=== PATIENT | female | born 1975 | race Caucasian/White ===

== ENCOUNTER 2021-01-20 06:09 | Emergency (ER) | payer OTHER, SELFPAY ==
--- NOTE | ~2021-01-20 | CT_ITS ---
EXAMINATION: CT ABDOMEN AND PELVIS WITH CONTRAST CLINICAL INFORMATION: Upper abdominal pain. COMPARISON: None TECHNIQUE: Multidetector volumetric images were obtained from the superior aspect of the liver through the pubic symphysis following administration 85 mL of Omnipaque 350 intravenous contrast. Sagittal and coronal reformatted images were obtained on the technologist's workstation. Oral contrast: No This CT examination was performed using dose optimization techniques as appropriate, variously including the following: *Automated exposure control *Adjustment of mA and/or kV according to patient size (this includes techniques or standardized protocols for targeted exams where dose is matched to indication/reason for exam; i.e. extremities or head) *Use of iterative reconstruction technique DLP: 593 mGy-cm FINDINGS: LUNG BASES: The heart size is normal. There is a 3 mm subpleural nodule right lower lobe axial image 9/6. Minimal atelectatic changes seen in left lung base. LIVER, GALLBLADDER, AND BILIARY TREE: The liver is normal in size, shape, and attenuation. No focal hepatic lesion or biliary ductal dilatation is present. The gallbladder is unremarkable with no evidence of radiopaque gallstones, gallbladder wall thickening, or obvious pericholecystic inflammatory changes. PANCREAS: Unremarkable. SPLEEN: Unremarkable. ADRENAL GLANDS: Unremarkable. KIDNEYS AND URETERS: The kidneys are normal in size, shape, and attenuation. No hydronephrosis, hydroureter, or calculi seen. No perinephric stranding. There are multiple 2 mm nonenhancing hypodense lesions in both kidneys suggestive of small cysts. No enhancing lesions seen. BLADDER: Unremarkable. GASTROINTESTINAL TRACT: There is scattered stool and gas seen throughout the colon without any significant distention. The small bowel loops are normal caliber. Appendix is normal caliber. ABDOMINAL WALL: There are small umbilical hernia containing fat. LYMPH NODES: Normal. VASCULAR: Unremarkable. PELVIC VISCERA: The uterus is anteverted and appears unremarkable. There is an IUD well located within the endometrial canal. OSSEOUS STRUCTURES: No lytic or sclerotic process seen. CT/CT abdomen pelvis w con IMPRESSION: No acute intra-abdominal process seen. Mild constipation.
[2021-01-20 06:12] VITALS: BP 149/100; PULSE 77; RESP 18; TEMP 36.8; O2SAT 99; BMI 29.2
--- NOTE | 2021-01-20 06:41 | ED.ABDPAIN ---
HPI - Abdominal Pain General Chief Complaint: Abdominal Pain Stated Complaint: abdominal and back pain Time Seen by Provider: 01/20/21 06:41 Source: patient Mode of arrival: ambulatory Limitations: no limitations History of Present Illness HPI narrative: 45 yo female with upper and mid abdominal pain no other GI or symptoms radiates from back to abdomen and down to R hip no injuries, no prior events MD elicited complaint: abdominal pain Pertinent past history: none Onset (ago): day(s) (2) Pain Consistency: constant Location: epigastric Severity: moderate Quality: aching and dull Radiation: back Migration to: no migration Exacerbating factors: movement Relieving factors: nothing Associated symptoms: denies other symptoms Related Data Previous Rx's Medication Instructions Recorded diazepam [Valium] 5 mg PO TID PRN #10 tab 01/20/21 famotidine [Pepcid] 20 mg PO DAILY PRN #30 tab 01/20/21 lidocaine 1 patch TOPICAL DAILY PRN #10 ea 01/20/21 Allergies Allergy/AdvReac Type Severity Reaction Status Date / Time sulfamethoxazole Allergy Mild RASH Unverified 05/29/20 15:13 [From ] trimethoprim [From ] Allergy Mild RASH Unverified 05/29/20 15:13 Septra Allergy Unknown Uncoded 04/22/14 00:00 Review of Systems Review of Systems Constitutional : No Weight loss, No Fever, No Chills ENT/Mouth : No sore throat, No Rhinorrhea Eyes: No Swelling, No Redness Cardiovascular : No Chest Pain, No SOB, NoEdema Respiratory : No Cough, No Sputum, No Wheezing Gastrointestinal : no Nausea,no Vomiting, no Diarrhea, positive abdominal Pain, No Hematochezia, No Melena Genitourinary : No Dysuria, No Urinary Frequency, No Hematuria, No Urgency Musculoskeletal : No joint pain, No Myalgias, No Joint Swelling, pos back pain Skin : No Skin Lesions, No rash Neuro : No Weakness, No Numbness, No Dizziness, No Headache Psych : No Anxiety/Panic, No Depression Heme/Lymph: No Bruising, No Lymphadenopathy Endocrine : No Polyuria, No Polydipsia All other systems reviewed and are negative. Physical Exam Vital Signs: Vital Signs: Last Vital Signs Temp 98.4 F 01/20/21 08:50 Pulse 62 01/20/21 08:50 Resp 17 01/20/21 08:50 BP 120/84 01/20/21 08:50 Pulse Ox 100 01/20/21 08:50 Body Mass Index 29.2 Appearance: Alert. Oriented X3. No acute distress. Eyes: Pupils equal, round and reactive to light. ENT: Pharynx normal. Neck: Normal inspection. Neck supple. CVS: Normal heart rate and rhythm. Pulses normal. Respiratory: No respiratory distress. Breath sounds normal. Abdomen: Soft and moderate ttp in epigastric area Back: ttp along lower R lumbar area Skin: Skin warm and dry. Normal skin color. Normal skin turgor. Extremities: No lower extremity edema. No calf ttp Neuro: Oriented X 3. No motor deficit. No sensory deficit. Course Course Course Narrative: no acute findings, feels better, stable for DC at this time MDM - Abdominal Pain MDM Narrative Medical decision making narrative: 45 yo female healthy with 2 days of epigastric pain no n/v/d no symptoms pain radiates to the back - at this time her abdomen is tender, she has no b/b incontinence, no saddle anesthesia, no AC therapy, will obtain labs, UA, treat pain with IV morphine/toradol, CT scan for pancreatitis dispo per results and findings. Lab Data Result diagrams: 01/20/21 07:22 01/20/21 07:22 Labs: Lab Results 01/20/21 01/20/21 01/20/21 Range/Units 07:22 07:22 07:22 WBC 12.4 H (4.8-10.8) X10*3/uL RBC 4.41 (4.20-5.50) X10*6/uL Hgb 14.2 (12.0-16.0) g/dl Hct 42.7 (37-47) % MCV 96.8 (80-98) fL MCH 32.2 (27.0-33.0) pg MCHC 33.3 (31.0-35.0) g/dl RDW 11.9 (11.0-16.0) % Plt Count 294 (160-400) X10*3/uL MPV 9.9 (9.4-12.3) fL Immature Gran % (Auto) 0.3 (0.0-0.4) % Neut % (Auto) 58.7 (45-73) % Lymph % (Auto) 31.2 (20-40) % Treasure % (Auto) 6.3 (2-11) % Eos % (Auto) 2.6 (0-4) % Baso % (Auto) 0.9 (0-2) % Lymph # (Auto) 3.9 (1.2-4.9) X10*3/uL Treasure # (Auto) 0.8 (0.1-1.2) X10*3/uL Eos # (Auto) 0.3 (0.0-0.4) X10*3/uL Baso # (Auto) 0.1 (0.0-0.2) X10*3/uL Abs Immat Gran (auto) 0.04 H (0.00-0.03) X10*3/uL Absolute Neuts (auto) 7.3 (2.0-8.3) X10*3/uL Absolute Nucleated RBC 0.000 (0.0-0.012) X10*3/uL Nucleated RBC % (auto) 0.0 (0.0-0.2) /100WBC Hold Blue Top SEE NOTE Sodium 138 (135-145) mmol/L Potassium 4.2 (3.3-5.1) mmol/L Chloride 109 H (96-108) mmol/L Carbon Dioxide 22 (22-29) mmol/L Anion Gap 11 L (12-20) BUN 11 (9-16) mg/dL Creatinine 0.73 (0.5-1.4) mg/dL Estim Creat Clear Calc 96.7 Estimated GFR > 60 Random Glucose 94 (60-115) mg/dL Calcium 8.8 (8.4-10.2) mg/dL Magnesium (1.6-2.6) mg/dL Total Bilirubin (0.0-1.0) mg/dL Direct Bilirubin (0.0-0.5) mg/dL AST (5-31) U/L ALT (0-31) U/L Alkaline Phosphatase (39-117) U/L Total Protein (6.5-8.0) g/dL Albumin (3.5-5.0) g/dL Lipase (8-78) U/L Urine Color Urine Appearance Urine pH (5.0-8.0) Ur Specific [place] (1.005-1.025) Urine Protein (NEG-TRACE) MG/DL Urine Glucose (UA) (NEG) MG/DL Urine Ketones (NEG) MG/DL Urine Blood (NEG) Urine Nitrite (NEG) Ur Leukocyte Esterase (NEG) 01/20/21 01/20/21 Range/Units 07:22 09:12 WBC (4.8-10.8) X10*3/uL RBC (4.20-5.50) X10*6/uL Hgb (12.0-16.0) g/dl Hct (37-47) % MCV (80-98) fL MCH (27.0-33.0) pg MCHC (31.0-35.0) g/dl RDW (11.0-16.0) % Plt Count (160-400) X10*3/uL MPV (9.4-12.3) fL Immature Gran % (Auto) (0.0-0.4) % Neut % (Auto) (45-73) % Lymph % (Auto) (20-40) % Treasure % (Auto) (2-11) % Eos % (Auto) (0-4) % Baso % (Auto) (0-2) % Lymph # (Auto) (1.2-4.9) X10*3/uL Treasure # (Auto) (0.1-1.2) X10*3/uL Eos # (Auto) (0.0-0.4) X10*3/uL Baso # (Auto) (0.0-0.2) X10*3/uL Abs Immat Gran (auto) (0.00-0.03) X10*3/uL Absolute Neuts (auto) (2.0-8.3) X10*3/uL Absolute Nucleated RBC (0.0-0.012) X10*3/uL Nucleated RBC % (auto) (0.0-0.2) /100WBC Hold Blue Top Sodium (135-145) mmol/L Potassium (3.3-5.1) mmol/L Chloride (96-108) mmol/L Carbon Dioxide (22-29) mmol/L Anion Gap (12-20) BUN (9-16) mg/dL Creatinine (0.5-1.4) mg/dL Estim Creat Clear Calc Estimated GFR Random Glucose (60-115) mg/dL Calcium (8.4-10.2) mg/dL Magnesium 2.0 (1.6-2.6) mg/dL Total Bilirubin 0.3 (0.0-1.0) mg/dL Direct Bilirubin 0.2 (0.0-0.5) mg/dL AST 11 (5-31) U/L ALT 13 (0-31) U/L Alkaline Phosphatase 49 (39-117) U/L Total Protein 6.9 (6.5-8.0) g/dL Albumin 4.1 (3.5-5.0) g/dL Lipase 30 (8-78) U/L Urine Color STRAW Urine Appearance CLEAR Urine pH 5.5 (5.0-8.0) Ur Specific [place] <= 1.005 (1.005-1.025) Urine Protein NEG (NEG-TRACE) MG/DL Urine Glucose (UA) NEG (NEG) MG/DL Urine Ketones NEG (NEG) MG/DL Urine Blood NEG (NEG) Urine Nitrite NEG (NEG) Ur Leukocyte Esterase NEG (NEG) Discharge Plan Discharge Clinical Impression: Abdominal pain Qualifiers: Abdominal location: epigastric Qualified Code(s): R10.13 - Epigastric pain Back pain Qualifiers: Back pain location: low back pain Chronicity: acute Back pain laterality: bilateral Sciatica presence: without sciatica Qualified Code(s): M54.5 - Low back pain Patient Disposition: Home, Self-Care Instructions: Abdominal Pain (ED), Back Pain (ED) Additional Instructions: return to ED for any worsening symptoms or concerns Prescriptions: New lidocaine 4 % adhesive patch,medicated 1 patch topical DAILY PRN (Reason: pain) Qty: 10 RF: 0 famotidine [Pepcid] 20 mg tablet 20 mg PO DAILY PRN (Reason: abdominal discomfort) Qty: 30 RF: 0 diazepam [Valium] 5 mg tablet 5 mg PO TID PRN (Reason: muscle spasm) Qty: 10 RF: 0 Referrals: Physician,Unknown [Primary Care Provider] - 2 days (PCP if not better) Interventions: ED Discharge Assessment Last Done: 01/20/21 09:57 Discharge Date/Time: 01/20/21 09:58 [facility] Past Medical History Attestation statement: The following information was validated with the patient. Medical History No active medical problems Social History Social History (Updated 01/20/21 @ 06:45 by Mable Garcia DO) Smoking Status: Current every day smoker Use of substances other than those prescribed or required for medical reasons: No Advance Directives: No Advance Directives Information Provided: No Patient : No
[2021-01-20 07:27] LABS: MANUAL DIFF FLAG NO
[2021-01-20] MEDS: 0.9 % Sodium Chloride 1,000 ML 999 ML IVCONT (07:28)
[2021-01-20] MEDS: ondansetron HCL 4 MG/2 ML VIAL IVPUSH (07:28)
[2021-01-20 07:29] LABS: Basophils Absolute Auto 0.1 X10*3/uL (0.0-0.2); Basophils Percent Auto 0.9 % (0-2); Eosinophils Absolute Auto 0.3 X10*3/uL (0.0-0.4); Eosinophils Percent Auto 2.6 % (0-4); Hematocrit 42.7 % (37-47); Hemoglobin 14.2 g/dl (12.0-16.0); Imm Gran Abs Auto 0.04 X10*3/uL (0.00-0.03); Imm Gran Pct Auto 0.3 % (0.0-0.4); Lymphocytes Absolute Auto 3.9 X10*3/uL (1.2-4.9); Lymphocytes Percent Auto 31.2 % (20-40); Mean Corpuscular HGB Conc 33.3 g/dl (31.0-35.0); Mean Corpuscular Hemoglobin 32.2 pg (27.0-33.0); Mean Corpuscular Volume 96.8 fL (80-98); Mean Platelet Volume 9.9 fL (9.4-12.3); Monocytes Absolute Auto 0.8 X10*3/uL (0.1-1.2); Monocytes Percent Auto 6.3 % (2-11); Neutrophils Absolute Auto 7.3 X10*3/uL (2.0-8.3); Neutrophils Percent Auto 58.7 % (45-73); Platelet Count 294 X10*3/uL (160-400); Red Blood Count 4.41 X10*6/uL (4.20-5.50); Red Cell Distribution Width 11.9 % (11.0-16.0); White Blood Count 12.4 X10*3/uL (4.8-10.8)
[2021-01-20] MEDS: Ketorolac Tromethamine 30 MG/ML VIAL IVPUSH (07:29)
[2021-01-20 07:30] VITALS: RESP 16
[2021-01-20] MEDS: Morphine Sulfate 4 MG/ML CARTRIDGE IVPUSH (07:30)
[2021-01-20 07:32] VITALS: BP 162/89; PULSE 68; RESP 16; O2SAT 100
[2021-01-20 07:49] LABS: Anion Gap 11 (12-20); Blood Urea Nitrogen 11 mg/dL (9-16); Calcium 8.8 mg/dL (8.4-10.2); Carbon Dioxide 22 mmol/L (22-29); Chloride 109 mmol/L (96-108); Creatinine Clr Calc Pharmacy 96.7; Estimated Glomerular Filt Rate > 60; Glucose Random 94 mg/dL (60-115); Potassium 4.2 mmol/L (3.3-5.1); Sodium 138 mmol/L (135-145)
[2021-01-20 07:52] LABS: Alanine Aminotransferase 13 U/L (0-31); Albumin Level 4.1 g/dL (3.5-5.0); Alkaline Phosphatase 49 U/L (39-117); Aspartate Amino Transferase 11 U/L (5-31); Bilirubin Direct 0.2 mg/dL (0.0-0.5); Bilirubin Total 0.3 mg/dL (0.0-1.0); Lipase 30 U/L (8-78); Total Protein 6.9 g/dL (6.5-8.0)
[2021-01-20 07:56] VITALS: RESP 16
--- NOTE | 2021-01-20 07:56 | PC.NURSE ---
pt off to the ct scan via stetcher.
[2021-01-20] MEDS: iohexoL 350 MG/ML 100 ML INFUS..BTL 85 ML IV (08:13)
--- NOTE | 2021-01-20 08:45 | PC.NURSE ---
correction - pt has pain to rlq abd pain
[2021-01-20 08:50] VITALS: BP 120/84; PULSE 62; RESP 17; TEMP 36.9; O2SAT 100
[2021-01-20 09:38] LABS: Glucose Urine UA NEG (NEG); Leukocyte Esterase Urine NEG (NEG); Nitrite Urine NEG (NEG); PH 5.5 (5.0-8.0); Specific Gravity - Urine <= 1.005 (1.005-1.025); Urine Blood NEG (NEG); Urine Ketones NEG (NEG); Urine Protein NEG (NEG-TRACE)
[2021-01-20 09:40] LABS: Appearance Urine CLEAR; Color Urine STRAW
== END 2021-01-20 09:58 | disposition home or self-care (01) ==
PROVIDERS: Emergency Provider Emergency Medicine
DX: R10.13 Epigastric pain (principal); M54.5 Low back pain; F17.200 Nicotine dependence, unspecified, uncomplicated
CPT/HCPCS: 36415; 74177; 80048; 80076; 81003; 83690; 83735; 85025; 87086; 96360; 96361; 96374; 96375; 99284; 99285; J1885; J2270; J2405; Q9967

== ENCOUNTER 2023-06-08 09:41 | Outpatient (AMB) | payer OTHER, SELFPAY ==
--- NOTE | 2023-06-08 09:43 | AM.OFFWIN_ITS ---
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 Her has similar symptoms. Has not done any viral testing at this point. Denies any shortness of breath, dizziness, weakness, palpitations. [facility] Medical History No active medical problems Social History Patient Tobacco Use Status: Current everyday Tobacco user Review of Systems Const All systems reviewed & are unremarkable except as noted in HPI and below Physical Exam Vital Signs: Last Vital Signs Temp 98.1 F 06/08/23 09:55 Pulse 76 06/08/23 09:55 BP 142/82 H 06/08/23 09:55 Pulse Ox 98 06/08/23 09:55 Oxygen Delivery Method Room Air 06/08/23 09:55 Const General: cooperative and ill appearing acutely HEENT Head: Yes normal to inspection Ears: hearing grossly normal bilaterally General nose exam: Normal external nose present and Normal nasal mucous membranes and turbinates present Face and sinus: Yes normal facial exam Mouth: Normal oral and palatal mucosa present and moist mucous membranes Throat: Yes posterior oropharynx normal Neck Neck: Yes no lymphadenopathy Resp Effort & Inspection: normal respiratory effort and able to speak in complete sentences Auscultation: clear to auscultation bilaterally Cardio Jugular venous distension: no JVD Palpation: normal PMI Rate: regular rate Rhythm: regular rhythm GI Palpation (GI): Soft to palpation (nontender) and No hepatosplenomegaly present Skin General skin exam: no rashes or lesions noted Extrem General: Yes capillary refill normal and Yes no clubbing, cyanosis or edema Psych Appearance: grossly normal Mental Status: mental status grossly normal Speech and movement: Normal speech and movement present Assessment & Plan Assessment & Plan (1) Vomiting and diarrhea: Code(s): R11.10 - Vomiting, unspecified; R19.7 - Diarrhea, unspecified Plan: Patient's symptoms consistent with viral illness. We discussed conservative measures, including rest, hydration, Tylenol/Motrin for body aches and any fevers. I have started her on Zofran for the nausea/vomiting. We reviewed indications, use, possible side effects of this. I also ordered a COVID test, which she will go have done now. She is aware she will be notified of results once these are available. If symptoms worsen, or do no improve with time/conservative measures, or if she develops any dizziness, weakness, or is unable to tolerate any food/fluids, she should go to the ED for evaluation. She agrees to plan. (2) Generalized body aches: Code(s): R52 - Pain, unspecified Orders: Orders BinaxNOW Covid-19 Ag Today R11.10 - Vomiting, unspecified, R19.7 - Diarrhea, unspecified, R52 - Pain, unspecified Medications: New ondansetron HCl 4 mg PO Q8H 5 days PRN 15 tabs 0RF nausea and vomiting R11.10 - Vomiting, unspecified, R19.7 - Diarrhea, unspecified Coding Level of Care Code Est Pt Level 3 (30046) Diagnoses Vomiting and diarrhea R11.10; R19.7 Generalized body aches R52
[2023-06-08 09:55] VITALS: BP 142/82; PULSE 76; TEMP 36.7; O2SAT 98
== END 2023-06-08 10:18 | disposition home or self-care (01) ==
PROVIDERS: Visit Provider Nurse Practitioner Family
DX: R11.10 Vomiting, unspecified (principal); R19.7 Diarrhea, unspecified; R52 Pain, unspecified
CPT/HCPCS: 99213

== ENCOUNTER 2023-06-08 10:14 | Outpatient (REF) | payer OTHER, SELFPAY ==
[2023-06-08 10:42] LABS: Binax Internal Control QC Valid; Binax Now Covid-19 Ag Negative (Negative); Binax Performed by: PAULP
== END 2023-06-08 10:15 | disposition home or self-care (01) ==
LOC: HO.HMGCLDS 10:14
PROVIDERS: Visit Provider Nurse Practitioner Family
DX: R52 Pain, unspecified (principal); R11.10 Vomiting, unspecified; R19.7 Diarrhea, unspecified; Z20.822 Contact with and (suspected) exposure to COVID-19
CPT/HCPCS: 87811; C9803

== ENCOUNTER 2023-06-15 12:26 | Outpatient (AMB) | payer OTHER, SELFPAY ==
--- NOTE | 2023-06-15 12:36 | MHC.PC.OV ---
Vital Signs 06/15/23 12:39 Weight 175 lb BP 130/90 H Blood Pressure Location Lt brachial Position Sitting Pulse 100 Pulse Source Pulse Oximeter Pulse Oximetry (%) 94 Oxygen Delivery Method Room Air Intake Visit Reasons: EP-Lt breast pain Intake Note: Patient here for left breast pain since yesterday, mainly at the button and warm to the touch. She states she did have a procedure done on that breast. Allergies sulfamethoxazole [From Septra] Allergy (Mild, Verified 06/15/23 12:39) RASH trimethoprim [From Septra] Allergy (Mild, Verified 06/15/23 12:39) RASH oxycodone Adverse Reaction (Intermediate, Verified 06/15/23 12:41) rash Septra Allergy (Mild, Uncoded 06/15/23 12:39) Abdominal Pain Tobacco use date assessed: 06/15/23 [facility] Medical History No active medical problems Social History Patient Tobacco Use Status: Current everyday Tobacco user Physical exam (Primary Care) Vital Signs: Last Vital Signs Pulse 100 06/15/23 12:39 BP 130/90 H 06/15/23 12:39 Pulse Ox 94 06/15/23 12:39 Oxygen Delivery Method Room Air 06/15/23 12:39 Tobacco/Smoking Status: Tobacco use Status Tobacco use date assessed 06/15/23 06/15/23 12:42 Patient Tobacco Use Status Current everyday Tobacco 06/15/23 12:42 Assessment and Plan Assessment & Plan (1) Breast pain, left: Code(s): N64.4 - Mastodynia Plan Take your medications as prescribed. If you were prescribed antibiotics today, it is important that you take your medication to their entirety, do not skip any doses, do not finish them early. Follow-up with your primary care provider this week. Return to the emergency department with new or worsening symptoms. Such as fevers, chills, chest pain, shortness of breath, nausea, vomiting, dizziness, headache, vision changes, lethargy In case of emergency call 911 Coding Level of Care Code Tele New Pt Level 3 (62334) Diagnoses Breast pain, left N64.4
[2023-06-15 12:39] VITALS: BP 130/90; PULSE 100; O2SAT 94
--- NOTE | 2023-06-15 13:03 | MHC.OFFWIV ---
Intake Vital Signs 06/15/23 12:39 Weight 79.379 kg BP 130/90 H Blood Pressure Location Lt brachial Position Sitting Pulse 100 Pulse Source Pulse Oximeter Pulse Oximetry (%) 94 Oxygen Delivery Method Room Air Intake Visit Reasons: EP-Lt breast pain Intake Note: Patient here for left breast pain since yesterday, mainly at the button and warm to the touch. She states she did have a procedure done on that breast. Patient Tobacco Use Status: Current everyday Tobacco user Allergies sulfamethoxazole [From Septra] Allergy (Mild, Verified 06/15/23 12:39) RASH trimethoprim [From Septra] Allergy (Mild, Verified 06/15/23 12:39) RASH oxycodone Adverse Reaction (Intermediate, Verified 06/15/23 12:41) rash Septra Allergy (Mild, Uncoded 06/15/23 12:39) Abdominal Pain HPI HPI Comments History of Present Illness Details 1311 48-year-old female presents for evaluation of left breast pain since yesterday, patient reports suddenly she had burning, warmth, redness underneath her left breast, patient states that severe pain. Started suddenly. Patient reports last mammogram was earlier this year which was normal. No family history of breast cancer. No personal history of breast cancer. Patient reports that she had some pre malignant tumors removed from that breast and she is concerned. Denies fevers, chills, nausea, vomiting, chest pain, shortness of breath, headache, vision changes, dizziness and weakness, nipple pain or discharge Physical exam slight erythema and warmth to the inferior aspect at the 6 o'clock position of left breast, no palpable abscess. Normal nipple, not inverted. No peau de orange, no dimpling. Tenderness to palpation to the inferior aspect of left breast. Normal right breast. They appear symmetric. Concerns for cellulitis and possible developing abscess. Inflammatory breast cancer can not be ruled out an urgent care device her to follow-up with PCP for mammogram. No signs of abscess at this time. No signs of necrotizing infection or gangrene. Unlikely yeast. Will discharge on doxycycline and Keflex. Advised for PCP follow-up as soon as possible. Educated patient on diagnosis and treatment plan, answered all question, patient verbalizes understanding. At this time patient will be discharged home, advised to return with new or worsening symptoms. Educated on worrisome signs and symptoms and when to return. At this time I feel comfortable discharge home. [facility] Medical History No active medical problems Social History Patient Tobacco Use Status: Current everyday Tobacco user Review of Systems Const Details: Constitutional : No Weight loss, No Fever, No Chills, No Fatigue, No Malaise ENT/Mouth : No sore throat, No Rhinorrhea Eyes: No Eye Pain, No Swelling, No Redness Cardiovascular : No Chest Pain, No SOB, No Dyspnea on Exertion, No Orthopnea, No Edema, No Palpitations, + breast discomfort Respiratory : No Cough, No Sputum, No Wheezing Gastrointestinal : No Nausea, No Vomiting, No Diarrhea, No Constipation, No abdominal Pain, No Hematochezia, No Melena Genitourinary : No Dysuria, No Urinary Frequency, No Hematuria, Musculoskeletal : No joint pain, No Myalgias, No Joint Swelling Skin : No Skin Lesions, No rash Neuro : No Weakness, No Numbness, No Dizziness, No Headache Psych : No Anxiety/Panic, No Depression All other systems reviewed and are negative All systems reviewed & are unremarkable except as noted in HPI and below Physical Exam Vital Signs: Last Vital Signs Pulse 100 06/15/23 12:39 BP 130/90 H 06/15/23 12:39 Pulse Ox 94 06/15/23 12:39 Oxygen Delivery Method Room Air 06/15/23 12:39 vss Appearance: Alert.? Oriented X3.? No acute distress.? Head: Normocephalic, atraumatic, no step-offs or deformities Eyes: Pupils equal, round and reactive to light.? CVS: Normal heart rate and rhythm.? Pulses normal.? Respiratory: No respiratory distress.? Breath sounds normal.? Skin: Skin warm and dry.? Normal skin color.? Normal skin turgor.? Extremities: No lower extremity edema.? No calf ttp. 5/5 strength to bilateral upper and lower extremities Back: No midline tenderness, no C-spine tenderness, full range of motion, no CVA tenderness bilaterally Neuro: Oriented X 3.? No motor deficit.? No sensory deficit. CN 2-12 intact Breast exam: slight erythema and warmth to the inferior aspect at the 6 o'clock position of left breast, no palpable abscess. Normal nipple, not inverted. No peau de orange, no dimpling. Tenderness to palpation to the inferior aspect of left breast. Normal right breast. They appear symmetric. Assessment & Plan Assessment & Plan (1) Breast pain, left: Code(s): N64.4 - Mastodynia Plan Take your medications as prescribed. If you were prescribed antibiotics today, it is important that you take your medication to their entirety, do not skip any doses, do not finish them early. Follow-up with your primary care provider this week for mammogram as soon as possible or possible ultrasound Return to the emergency department with new or worsening symptoms. Such as fevers, chills, chest pain, shortness of breath, nausea, vomiting, dizziness, headache, vision changes, lethargy In case of emergency call 911 Medications: New cephalexin 500 mg PO QID 28 caps 0RF 7 days doxycycline hyclate 100 mg PO BID 14 caps 0RF 7 days naproxen 500 mg PO BID PRN 14 tabs 0RF pain Coding Level of Care Code Est Pt Level 3 (92406) Diagnoses Breast pain, left N64.4
== END 2023-06-15 13:09 | disposition home or self-care (01) ==
PROVIDERS: Visit Provider Physician Assistant
DX: N64.4 Mastodynia (principal)
CPT/HCPCS: 99213

== ENCOUNTER 2025-01-13 07:08 | Emergency (ER) | payer OTHER, SELFPAY ==
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
[2025-01-13 07:16] VITALS: BP 220/140; PULSE 75; O2SAT 99
[2025-01-13 07:20] VITALS: BP 166/109; PULSE 102; RESP 22; TEMP 36.2; O2SAT 99; BMI 28.8
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
[2025-01-13] MEDS: Diphth,Pertus(ACell),Tet Adult 0.5 ML SYRINGE IM (09:15)
[2025-01-13] MEDS: Ibuprofen 600 MG TABLET PO (09:15)
[2025-01-13] MEDS: Acetaminophen 325 MG TABLET 975 MG PO (09:15)
[2025-01-13 11:14] VITALS: BP 154/94; PULSE 94; RESP 20; TEMP 36.6; O2SAT 99
== END 2025-01-13 11:18 | disposition home or self-care (01) ==
PROVIDERS: Emergency Provider Emergency Medicine
DX: S46.911A Strain of unspecified muscle, fascia and tendon at shoulder and upper arm level, right arm, initial encounter (principal); S10.91XA Abrasion of unspecified part of neck, initial encounter; S16.1XXA Strain of muscle, fascia and tendon at neck level, initial encounter; R51.9 Headache, unspecified; M25.511 Pain in right shoulder; Y04.2XXA Assault by strike against or bumped into by another person, initial encounter; Y93.9 Activity, unspecified; Y92.9 Unspecified place or not applicable; Y99.8 Other external cause status; Z23 Encounter for immunization; Z79.899 Other long term (current) drug therapy
CPT/HCPCS: 73030; 90471; 90715; 99283; 99284

== ENCOUNTER → 2025-01-13 08:58 | Outpatient (BNV) | payer OTHER, SELFPAY | PROVIDERS: Emergency Provider Emergency Medicine; Visit Provider Radiology Diagnostic Radiology | DX: M25.511 Pain in right shoulder (principal) | CPT/HCPCS: 73030 ==